=== PATIENT | male | born 1980 | race Caucasian/White ===

== ENCOUNTER 2022-10-19 00:36 | Emergency (ER) | payer OTHER ==
[~2022-10-19] VITALS: Ht 185.4 cm; Wt 145.1 kg
== END 2022-10-19 03:50 | disposition home or self-care (01) ==
LOC: ED 00:36
DX: T18.5XXA Foreign body in anus and rectum, initial encounter (principal); R91.1 Solitary pulmonary nodule; N28.9 Disorder of kidney and ureter, unspecified

== ENCOUNTER → 2023-01-27 | Outpatient (CLI) | payer OTHER | END | disposition home or self-care (01) | LOC: US 09:44 | PROVIDERS: ATTEND Nurse Practitioner | DX: N28.9 Disorder of kidney and ureter, unspecified (principal); K76.0 Fatty (change of) liver, not elsewhere classified; K86.9 Disease of pancreas, unspecified ==